=== PATIENT | female | born 1930 | race Caucasian/White ===

== ENCOUNTER 2017-04-01 12:50 | Outpatient (CLI) | payer OTHER ==
[~2017-04-01 12:50] MED LIST: ADVAIR DISKU1 INH; ALBUTEROL HFA60 DOSE IN; CLEOCIN300 MG PO; COMBIVENT RESPIMAT; COUMADIN5 MG PO; COUMADIN7.5 MG PO; DULCOLAX5 MG PO; LASIX40 MG PO; LEVAQUIN750 MG PO; LISINOPRIL2.5 MG PO; PROTONIX40 MG PO; STOOL SOFTENER100 M1 PO; [UNRECOGNIZED DRUG - REMARK] PO
--- NOTE | 2017-04-01 14:40 | DIAGNOSTIC IMAGING REPORT ---
PROCEDURE: XR CHEST 2 VIEW INDICATION: SOB, HX OF PE TECHNIQUE: Two views. COMPARISON: None. FINDINGS: The heart size at the upper limits of normal. No central venous congestion. Normal aortic contour. Chronic stranding in the right middle lobe with decreased density since the previous study. Tiny right pleural effusion/pleural thickening. Minor horizontal stranding in the lateral left lower lobe with chronic blunting of the costophrenic angle posteriorly. There is thickening of the right minor fissure. No other consolidations. Osseous structures demonstrate degenerative changes to the end plates in the thoracic spine. No acute fractures. IMPRESSION: 1. Chronic right middle lobe parenchymal stranding may be secondary to an atypical infectious or inflammatory process with associated atelectasis. This could also be due to chronic bronchitis. 2. Minor left lateral lower lobe scarring. 3. Mild cardiomegaly without acute findings of CHF. Tiny bilateral effusions are likely chronic.
--- NOTE | 2017-04-02 14:14 | DIAGNOSTIC IMAGING REPORT ---
PROCEDURE: US ECHOCARDIOGRAM INDICATION: Heart failure edema and shortness of breath TECHNIQUE: Technically adequate study. The patient was in sinus rhythm with premature atrial contractions. COMPARISON: None FINDINGS: Left ventricle: Normal size with end diastolic dimension of 4.5 cm. Mild concentric left ventricular hypertrophy. Left ventricular ejection fraction is normal with EF estimated at 68%. Normal wall motion. There is grade 1 diastolic dysfunction. Right ventricle: Normal size and function. Left atrium: Normal size with left atrial volume index of 23 ml per meter squared. Right atrium: Normal size. Aortic valve: Mild sclerosis. No stenosis. No insufficiency. Mitral valve: Trace mitral regurgitation present. Normal structure. No stenosis. Tricuspid valve: Normal in structure and function with trace insufficiency. Pulmonary artery systolic pressure is estimated 18 mmHg which is normal. Pulmonic valve: Normal structure and function. Pericardium: No pericardial effusion. Aorta: Ascending aorta is normal in size. IMPRESSION: Normal left ventricular ejection fraction Grade 1 diastolic dysfunction Poor mild concentric left ventricular hypertrophy Aortic valve sclerosis without stenosis. All valves normal in function.
== END 2017-04-01 23:00 ==
LOC: US SRH 12:50
DX: I51.7 Cardiomegaly (principal); R91.8 Other nonspecific abnormal finding of lung field